=== PATIENT | female | born 1960 | race American Indian/Alaskan Native ===

== ENCOUNTER 2016-11-28 08:03 | Emergency (ER) | payer MEDICARE ==
[2016-11-28 08:27] VITALS: BP 115/51
[2016-11-28 08:51] LABS: Hematocrit 37.9 % (30.3-42.9); Hemoglobin 12.5 gm/dl (10.1-14.3); Mean Corpuscular HGB Conc 33 % (30-34); Mean Corpuscular Hemoglobin 30 pg (28-32); Mean Corpuscular Volume 91 fl (79-97); Platelet Count 181 K/mm3 (140-440); Red Blood Count 4.18 M/mm3 (3.65-5.03); Red Cell Distribution Width 13.4 % (13.2-15.2); White Blood Count 3.2 K/mm3 (4.5-11.0)
[2016-11-28 09:16] LABS: Alanine Aminotransferase 10 units/L (7-56); Albumin/Globulin Ratio 1.4 %; Alkaline Phosphatase 59 units/L (35-129); Anion Gap 15 mmol/L; Bilirubin,Total 0.6 mg/dL (0.1-1.2); Blood Urea Nitrogen 7 mg/dL (7-17); Calcium 9.6 mg/dL (8.4-10.2); Carbon Dioxide 26 mmol/L (22-30); Chloride 106.4 mmol/L (98-107); Glucose 83 mg/dL (65-100); Lipase 15 units/L (13-60); Potassium 4.1 mmol/L (3.6-5.0); Sodium 143 mmol/L (137-145); Total Protein 6.9 g/dL (6.3-8.2)
[2016-11-28 09:36] LABS: Bilirubin,Urine NEG (Negative); Blood,Urine SM (Negative); Ketones,Urine NEG (Negative); Leukocyte Esterase,Urine NEG (Negative); Mucus,Urine FEW /HPF; Nitrite,Urine NEG (Negative); Protein,Urine <15 mg/dL mg/dL (Negative); Urobilinogen,Urine < 2.0 mg/dL (<2.0)
[2016-11-28 09:43] LABS: Basophils % (Manual) 0 % (0.0-1.8); Blastocytes % (Manual) 0 %; RBC Morphology Normal
[2016-11-28 09:44] LABS: Diff Status Complete
== END 2016-11-28 14:55 | disposition left against medical advice (07) ==
LOC: ED 08:03
DX: R10.9 Unspecified abdominal pain (principal); R11.0 Nausea; Z53.21 Procedure and treatment not carried out due to patient leaving prior to being seen by health care provider
CPT/HCPCS: 36415; 80053; 81001; 83690; 85007; 85025

== ENCOUNTER 2018-03-19 10:59 | Emergency (ER) | payer MEDICARE ==
[2018-03-19 11:47] VITALS: BP 109/61
[2018-03-19 12:24] LABS: Basophils % (Auto) 0.4 % (0.0-1.8); Hematocrit 39.5 % (30.3-42.9); Lymphocytes # (Auto) 1.8 K/mm3 (1.2-5.4); Lymphocytes % (Auto) 42.9 % (13.4-35.0); Mean Corpuscular HGB Conc 33 % (30-34); Mean Corpuscular Hemoglobin 30 pg (28-32); Mean Corpuscular Volume 92 fl (79-97); Monocytes # (Auto) 0.5 K/mm3 (0.0-0.8); Monocytes % (Auto) 12.3 % (0.0-7.3); Platelet Count 182 K/mm3 (140-440); Red Cell Distribution Width 13.4 % (13.2-15.2)
[2018-03-19 12:40] LABS: Alanine Aminotransferase 14 units/L (7-56); Albumin 4.3 g/dL (3.9-5); BUN/Creatinine Ratio 28; Blood Urea Nitrogen 14 mg/dL (7-17); Calcium 9.6 mg/dL (8.4-10.2); Hemolysis Index 3
[2018-03-19 13:26] LABS: Bilirubin,Urine NEG (Negative); Blood,Urine NEG (Negative); Color,Urine Yellow (Yellow); Protein,Urine <15 mg/dL mg/dL (Negative); Urobilinogen,Urine < 2.0 mg/dL (<2.0)
[2018-03-19] MEDS ORDERED: TORADOL IV ONE (15:47)
[2018-03-19] MEDS ORDERED: NACL 0.9% 1000 ML 1,000 ML IV ONE (15:47)
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
--- NOTE | 2018-03-19 19:20 | Emergency Department Report ---
<JUSTIN CACERES - Last Filed: 03/19/18 19:34> ED Abdominal Pain HPI - General Chief Complaint: Abdominal Pain Stated Complaint: ADB PAIN Time Seen by Provider: 03/19/18 15:45 Source: patient Mode of arrival: Ambulatory Limitations: No Limitations - History of Present Illness Initial Comments: This is a 58-year-old female here reports that she is having abdominal pain for 5 weeks. She says she was initially treated for bladder infection with 2 rounds of antibiotic from [facility]. Patient states pain has not subsided with treatment and is getting worse. Patient also reports nausea and some vaginal discharge. She denies any odor to discharge and reports that she had STD testing done 2 weeks ago which was normal findings. Patient's is sexually active and said the last time she had sex was 3 months ago and she is unaware of any similar symptoms from partner. She says she was diagnosed with a urinary tract infection. Denies any fever or chills. Denies any back pain. She said pain is located in pelvic area and crampy. Patient has a history of multiple sclerosis. She has had a history of herpes. Patient denies any recent weight loss over the last 6 months. MD Complaint: abdominal pain Onset/Timin -: week(s) Location: suprapubic Radiation: none Migration to: no migration Severity scale (0 -10): 2 Quality: cramping Consistency: intermittent Improves With: nothing Worsens With: nothing Context: other Associated Symptoms: nausea, constipation. denies: vomiting, diarrhea, fever, chills, dysuria, hematemesis, hematuria, anorexia, syncope Treatments Prior to Arrival: other (none) - Related Data LMP (females 10-50): other (postmenopausal) Previous Rx's Medication Instructions Recorded Last Taken Type Bisacodyl [Dulcolax suppos] 10 mg OR QDAY PRN #3 supp.rect 03/19/18 Unknown Rx Docusate Sodium [Colace] 100 mg PO BID #60 capsule 03/19/18 Unknown Rx Polyethylene Glycol 3350 [Miralax 17 gm PO QDAY PRN #10 packet 03/19/18 Unknown Rx 3350] Allergies Allergy/AdvReac Type Severity Reaction Status Date / Time prochlorperazine Allergy Nausea Unverified 10/09/15 15:42 [From Compazine] prochlorperazine edisylate Allergy Nausea Unverified 10/09/15 15:42 [From Compazine] prochlorperazine maleate Allergy Nausea Unverified 10/09/15 15:42 [From Compazine] ED Review of Systems ROS: Stated complaint: ADB PAIN Other details as noted in HPI Constitutional: denies: chills, fever Respiratory: denies: cough, shortness of breath, SOB with exertion, SOB at rest , wheezing Cardiovascular: denies: chest pain, palpitations, dyspnea on exertion, edema, syncope Gastrointestinal: abdominal pain, nausea. denies: vomiting, diarrhea, constipation, hematemesis, melena, hematochezia Genitourinary: denies: urgency, dysuria, discharge Musculoskeletal: denies: back pain, joint swelling, arthralgia, myalgia Skin: denies: rash, lesions Neurological: denies: headache, weakness, numbness, paresthesias ED Past Medical Hx - Past Medical History Previous Medical History?: Yes Additional medical history: MS, herpes - Surgical History Past Surgical History?: No - Family History Family history: hypertension - Social History Smoking Status: Never Smoker Substance Use Type: None - Medications Home Medications: Home Medications Medication Instructions Recorded Confirmed Last Taken Type Bisacodyl [Dulcolax suppos] 10 mg OR QDAY PRN #3 supp.rect 03/19/18 Unknown Rx Docusate Sodium [Colace] 100 mg PO BID #60 capsule 03/19/18 Unknown Rx Polyethylene Glycol 3350 [Miralax 17 gm PO QDAY PRN #10 packet 03/19/18 Unknown Rx 3350] ED Physical Exam - General Limitations: No Limitations General appearance: alert, in no apparent distress - Head Head exam: Present: atraumatic, normocephalic - Eye Eye exam: Present: normal appearance, PERRL, EOMI Pupils: Present: normal accommodation - ENT ENT exam: Present: normal orophraynx, mucous membranes moist, TM's normal bilaterally, normal external ear exam - Neck Neck exam: Present: normal inspection, full ROM. Absent: tenderness, lymphadenopathy - Respiratory Respiratory exam: Present: normal lung sounds bilaterally. Absent: respiratory distress, chest wall tenderness - Cardiovascular Cardiovascular Exam: Present: regular rate, normal rhythm, normal heart sounds. Absent: systolic murmur, diastolic murmur, rubs, gallop - GI/Abdominal GI/Abdominal exam: Present: soft, tenderness (pelvic area with mild tenderness) , normal bowel sounds. Absent: distended, guarding, rebound, rigid, organomegaly, mass, bruit, pulsatile mass, hernia - Extremities Exam Extremities exam: Present: normal inspection, full ROM, normal capillary refill , other (No cce. + 2 pulses in all extremities, no neurovascular compromise.). Absent: tenderness, pedal edema, joint swelling, calf tenderness - Back Exam Back exam: Present: normal inspection, full ROM, other (ambulates without any difficulties). Absent: tenderness, CVA tenderness (R), CVA tenderness (L), muscle spasm, paraspinal tenderness, vertebral tenderness, rash noted - Neurological Exam Neurological exam: Present: alert, oriented X3, normal gait - Psychiatric Psychiatric exam: Present: normal affect, normal mood - Skin Skin exam: Present: warm, dry, intact, normal color. Absent: rash ED Course Vital Signs 03/19/18 03/19/18 11:41 16:39 Temperature 98.5 F Pulse Rate 76 Respiratory 18 15 Rate Blood Pressure 109/61 O2 Sat by Pulse 98 Oximetry - Reevaluation(s) Reevaluation #1: 03/19/18 17:22 patient given normal saline 1 L and Toradol 30 mg IV which helped her pain. She is has no nausea present. Reevaluation #2: 03/19/18 19:[address] scan results. She had recent pelvic exam with STD testing at [facility] 2 weeks ago. Patient is not concerned for STDs and said the last time she had sexual activity was 3 months ago. Reevaluation #3: 03/19/18 19:35 I discussed the patient that her CT scan report is being red and she says she understands. She is stable and pain-free without any nausea. Patient says that she has an appointment in 2 weeks it is set up with jarad [facility] which is a new appointment from her previous [facility] in [place]. ED Medical Decision Making - Lab Data Result diagrams: 03/19/18 11:53 03/19/18 11:53 Lab Results 03/19/18 03/19/18 03/19/18 Range/Units 11:53 11:53 12:58 WBC 4.2 L (4.5-11.0) K/mm3 RBC 4.30 (3.65-5.03) M/mm3 Hgb 13.0 (10.1-14.3) gm/dl Hct 39.5 (30.3-42.9) % MCV 92 (79-97) fl MCH 30 (28-32) pg MCHC 33 (30-34) % RDW 13.4 (13.2-15.2) % Plt Count 182 (140-440) K/mm3 Lymph % (Auto) 42.9 H (13.4-35.0) % [place] % (Auto) 12.3 H (0.0-7.3) % Eos % (Auto) 1.0 (0.0-4.3) % Baso % (Auto) 0.4 (0.0-1.8) % Lymph # 1.8 (1.2-5.4) K/mm3 [place] # 0.5 (0.0-0.8) K/mm3 Eos # 0.0 (0.0-0.4) K/mm3 Baso # 0.0 (0.0-0.1) K/mm3 Seg Neutrophils % 43.4 (40.0-70.0) % Seg Neutrophils # 1.8 (1.8-7.7) K/mm3 Sodium 140 (137-145) mmol/L Potassium 4.3 (3.6-5.0) mmol/L Chloride 104.2 (98-107) mmol/L Carbon Dioxide 25 (22-30) mmol/L Anion Gap 15 mmol/L BUN 14 (7-17) mg/dL Creatinine 0.5 L (0.7-1.2) mg/dL Estimated GFR > 60 ml/min BUN/Creatinine Ratio 28 % Glucose 79 (65-100) mg/dL Calcium 9.6 (8.4-10.2) mg/dL Total Bilirubin 0.40 (0.1-1.2) mg/dL AST 17 (5-40) units/L ALT 14 (7-56) units/L Alkaline Phosphatase 67 (35-129) units/L Total Protein 7.2 (6.3-8.2) g/dL Albumin 4.3 (3.9-5) g/dL Albumin/Globulin Ratio 1.5 % Urine Color Yellow (Yellow) Urine Turbidity Clear (Clear) Urine pH 6.0 (5.0-7.0) Ur Specific [place] 1.010 (1.003-1.030) Urine Protein <15 mg/dl (Negative) mg/dL Urine Glucose (UA) Neg (Negative) mg/dL Urine Ketones Neg (Negative) mg/dL Urine Blood Neg (Negative) Urine Nitrite Neg (Negative) Urine Bilirubin Neg (Negative) Urine Urobilinogen < 2.0 (<2.0) mg/dL Ur Leukocyte Esterase Sm (Negative) Urine WBC (Auto) 3.0 (0.0-6.0) /HPF Urine RBC (Auto) 1.0 (0.0-6.0) /HPF U Epithel Cells (Auto) 1.0 (0-13.0) /HPF Urine culture sent - Radiology Data Radiology results: report reviewed - Differential Diagnosis abdominal mass, benign VS malignant,colitis, UTI, Critical care attestation.: If time is entered above; I have spent that time in minutes in the direct care of this critically ill patient, excluding procedure time. ED Disposition Clinical Impression: Dysuria Constipation Qualifiers: Constipation type: slow transit constipation Qualified Code(s): K59.01 - Slow transit constipation Disposition: - TO HOME OR SELFCARE Condition: Good Instructions: Abdominal Pain (ED) Additional Instructions: Please follow up with [facility] on Friday continued pelvic pain over 5 weeks. Prescriptions: Bisacodyl [Dulcolax suppos] 10 mg OR QDAY PRN #3 supp.rect PRN Reason: Constipation Docusate Sodium [Colace] 100 mg PO BID #60 capsule Polyethylene Glycol 3350 [Miralax 3350] 17 gm PO QDAY PRN #10 packet PRN Reason: Constipation Referrals: REJI AVILA MD [Primary Care Provider] - 3-5 Days follow-up with, your [facility] [Other] - 03/19/18 Forms: Work/School Release Form(ED) <NIDIA BURT - Last Filed: 03/19/18 20:53> ED Medical Decision Making - Lab Data Result diagrams: 03/19/18 11:53 03/19/18 11:53 - Radiology Data Radiology results: image reviewed CT abdomen and pelvis result no intra-abdominal process noted marked stool throughout the colon consistent with constipation - Medical Decision Making Patient with persistent urinary urgency frequency and dysuria despite antibiotic bodies 2 rounds Cipro and Macrobid prescribed by PCP plan Rocephin 1 g IV piggyback patient will finish current Macrobid prescription CT abdomen and pelvis demonstrate constipation patient states bowel movements consistent without pain occasional blood wiping . No visual hemorrhoids plan MiraLAX daily Dulcolax suppositories when necessary Colace by mouth patient will follow with PCP in 2 to 3 days return to ED should symptoms worsen patient verbalized understanding agreement was signed for DC'd home stable condition at this time. ED Disposition Is pt being admited?: No Does the pt Need Aspirin: No Time of Disposition: 20:53
--- NOTE | 2018-03-19 20:35 | Cat Scan Report ---
FINAL REPORT EXAM: CT ABDOMEN PELVIS W CON HISTORY: abdominal pain TECHNIQUE: Standard enhanced CT of the abdomen and pelvis. Coronal and sagittal reconstruction was also performed. Contrast: 100 mL Omnipaque 350 given IV. PRIORS: None. FINDINGS: Within the abdomen, the liver, spleen, pancreas, gallbladder, adrenal glands are unremarkable. No evidence for retroperitoneal or pelvic lymphadenopathy is seen. The right kidney demonstrates an extrarenal pelvis. 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 There is marked stool present throughout the entire colon. The bowel loops have normal caliber. No soft tissue mass, fluid collection, inflammatory change, or free air is seen within the abdomen or pelvis. The retrocecal appendix is normal. Within the pelvis, the bladder is unremarkable. The uterus is normal. No evidence for mass or lymphadenopathy is seen in the pelvis. Images through the upper abdomen include the lung bases which are expanded and clear. Bony structures show no focal abnormalities and are intact. IMPRESSION: No acute intra-abdominal process noted. Marked stool throughout the colon consistent with constipation.
[2018-03-19] MEDS ORDERED: ROCEPHIN/NS 1 GM/50 ML 1 GM/50 ML BAG IV ONE (20:46)
== END 2018-03-19 21:49 | disposition home or self-care (01) ==
LOC: ED 10:59
DX: R30.0 Dysuria (principal); K59.01 Slow transit constipation; Z88.8 Allergy status to other drugs, medicaments and biological substances
CPT/HCPCS: 36415; 74177; 80053; 81001; 85025; 96374; 96375; 99284; J0696; J1885; J7030; Q9967